=== PATIENT | male | born 1995 | race African-American/Black ===

== ENCOUNTER 2019-05-23 18:40 | Emergency (ER) | payer OTHER ==
[~2019-05-23] VITALS: Ht 190.5 cm; Wt 83.0 kg
[2019-05-23] MEDS ORDERED: IBUPROFEN 600MG TABLET PO ONE (19:15)
[2019-05-24] MEDS ORDERED: HYDROCODONE/ACETAMINOPHEN 5/325MG TABLET PO NR
[2019-05-24 00:15] VITALS: BP 124/68
== END 2019-05-24 00:45 | disposition home or self-care (01) ==
LOC: ER 18:40
DX: J02.8 Acute pharyngitis due to other specified organisms (principal); Z87.442 Personal history of urinary calculi
CPT/HCPCS: 87070; 87430; 99283

== ENCOUNTER 2019-10-05 22:49 | Emergency (ER) | payer MEDICAID, OTHER ==
[~2019-10-05] VITALS: Ht 198.1 cm; Wt 87.0 kg
[2019-10-05 23:15] VITALS: BP 129/74
[2019-10-05 23:49] LABS: CLARITY URINE TURBID (CLEAR); COLOR URINE YELLOW (YELLOW); KETONES URINE NEGATIVE (NEGATIVE); LEUKOCYTE ESTERASE URINE 2+ (NEGATIVE); NITRITE URINE NEGATIVE (NEGATIVE); OCCULT BLOOD URINE 1+ (NEGATIVE); PH URINE 5.5 (4.5-8.0); PROTEIN URINE 1+ (NEGATIVE); UROBILINOGEN URINE 0.2 E.U./dL (0.2-1.0)
[2019-10-06] MEDS: CEFTRIAXONE SODIUM 500 MG/VIAL IM SCH (00:45)
[2019-10-06] MEDS: AZITHROMYCIN 500 MG TABLET PO SCH (00:45)
[2019-10-06] MEDS: LIDOCAINE HCL 1% 20ML VIAL (Pyxis) INJ INFIL SCH (00:45)
== END 2019-10-06 01:17 | disposition home or self-care (01) ==
LOC: ER 22:49
DX: N34.2 Other urethritis (principal); R31.9 Hematuria, unspecified; R30.0 Dysuria; I10 Essential (primary) hypertension
CPT/HCPCS: 81003; 87086; 96372; 99283; J0696; J3490; Z7610

== ENCOUNTER 2019-11-25 13:05 | Emergency (ER) | payer MEDICAID ==
[~2019-11-25] VITALS: Ht 182.9 cm; Wt 87.0 kg
[2019-11-25 14:06] VITALS: BP 133/88
== END 2019-11-25 14:12 | disposition home or self-care (01) ==
LOC: ER 13:05
DX: I10 Essential (primary) hypertension (principal); Z98.890 Other specified postprocedural states; Z13.9 Encounter for screening, unspecified
CPT/HCPCS: 99281

== ENCOUNTER 2020-02-03 09:57 | Emergency (ER) | payer OTHER, MEDICAID ==
[~2020-02-03] VITALS: Ht 185.4 cm; Wt 82.0 kg
[2020-02-03] MEDS ORDERED: ONDANSETRON HCL 4MG/2ML INJ IV STA (10:12)
[2020-02-03] MEDS ORDERED: MORPHINE SULFATE 4 MG/ML CPJ (NOT FOR IM USE) IV STA (10:12)
[2020-02-03] MEDS ORDERED: SODIUM CHLORIDE 0.9% 1,000 ML IV ONE (10:12)
[2020-02-03] MEDS ORDERED: FAMOTIDINE 20MG/2ML VIAL IV STA (10:12)
[2020-02-03 10:59] LABS: BASOPHILS % 0.2 % (0.0-2.0); EOSINOPHILS % 0.3 % (0.0-5.0); HEMOGLOBIN. 17.4 g/dL (14.0-18.0); LYMPHOCYTES % 12.9 % (20.0-50.0); MEAN CORPUSCULAR HEMOGLOBIN 28.3 pg (28.0-32.0); MEAN CORPUSCULAR VOLUME 81.1 fL (80.0-94.0); MEAN PLATELET VOLUME 7.2 fl (7.4-10.4); MONOCYTES % 8.5 % (2.0-8.0); NEUTROPHILS % 78.1 % (40.0-76.0); PLATELET 391 x1000/uL (130-400); RED BLOOD CELL COUNT 6.17 mill/uL (4.7-6.1); RED CELL DISTRIBUTION WIDTH 13.4 % (11.6-14.6)
[2020-02-03 11:02] LABS: CLARITY URINE CLEAR (CLEAR); COLOR URINE YELLOW (YELLOW); KETONES URINE TRACE (NEGATIVE); LEUKOCYTE ESTERASE URINE NEGATIVE (NEGATIVE); NITRITE URINE NEGATIVE (NEGATIVE); OCCULT BLOOD URINE NEGATIVE (NEGATIVE); PROTEIN URINE 1+ (NEGATIVE); SPECIFIC GRAVITY URINE 1.014 (1.005-1.030); UROBILINOGEN URINE 0.2 E.U./dL (0.2-1.0)
[2020-02-03 11:07] LABS: CHLORIDE 99 mEq/L (98-107)
[2020-02-03 11:12] LABS: ETHANOL BLOOD < 10 mg/dL
[2020-02-03 11:15] LABS: INR 1.1
[2020-02-03 11:21] LABS: *AMPHETAMINES SCREEN URINE NEGATIVE (NEGATIVE); *BARBITURATES SCREEN URINE NEGATIVE (NEGATIVE); *BENZODIAZEPINES SCREEN URINE NEGATIVE (NEGATIVE); *COCAINE SCREEN URINE NEGATIVE (NEGATIVE)
[2020-02-03 11:22] LABS: CANNABINOID URINE SCREEN NEGATIVE (NEGATIVE); METHADONE URINE SCREEN NEGATIVE (NEGATIVE); OPIATES URINE SCREEN NEGATIVE (NEGATIVE); PHENCYCLIDINE URINE SCREEN NEGATIVE (NEGATIVE)
[2020-02-03] MEDS ORDERED: IOHEXOL-300 100 ML BOTTLE ONE (13:23)
[2020-02-03 15:47] VITALS: BP 139/64
== END 2020-02-03 16:30 | disposition home or self-care (01) ==
LOC: ER 09:57
DX: R10.9 Unspecified abdominal pain (principal); R11.2 Nausea with vomiting, unspecified; R19.7 Diarrhea, unspecified; I10 Essential (primary) hypertension
CPT/HCPCS: 36415; 71045; 74177; 80053; 80305; 80320; 81003; 83690; 85025; 85610; 96361; 96374; 96375; 99285; J2270; J2405; J3490; J7030; Q9967; G0480

== ENCOUNTER 2020-09-23 02:58 | Emergency (ER) | payer MEDICAID, OTHER ==
[~2020-09-23] VITALS: Ht 198.1 cm; Wt 82.0 kg
[2020-09-23 03:02] VITALS: BP 132/70
== END 2020-09-23 04:02 | disposition home or self-care (01) ==
LOC: ER 02:58
DX: J32.9 Chronic sinusitis, unspecified (principal); I10 Essential (primary) hypertension; A64 Unspecified sexually transmitted disease
CPT/HCPCS: 99282

== ENCOUNTER 2020-10-05 17:00 | Emergency (ER) | payer MEDICAID ==
[~2020-10-05] VITALS: Ht 193 cm; Wt 91.0 kg
[2020-10-05 17:08] VITALS: BP 126/81
== END 2020-10-05 19:20 | disposition home or self-care (01) ==
LOC: ER 17:00
DX: R55 Syncope and collapse (principal); R73.9 Hyperglycemia, unspecified; I10 Essential (primary) hypertension
CPT/HCPCS: 93005; 99283

== ENCOUNTER 2020-12-20 15:06 | Emergency (ER) | payer MEDICAID ==
[~2020-12-20] VITALS: Ht 198.1 cm; Wt 81.0 kg
[2020-12-20] MEDS ORDERED: KETOROLAC 30MG/ML VIAL IM ONE (16:30)
[2020-12-20] MEDS ORDERED: ACETAMINOPHEN 325MG TABLET PO ONE (16:45)
[2020-12-20] MEDS ORDERED: IBUPROFEN 600MG TABLET PO ONE (16:45)
[2020-12-20 18:56] VITALS: BP 122/68
[2020-12-20] MEDS ORDERED: SULF1TAB48 MT (19:33)
== END 2020-12-20 20:11 | disposition home or self-care (01) ==
LOC: ER 15:06
DX: N49.2 Inflammatory disorders of scrotum (principal); I10 Essential (primary) hypertension
CPT/HCPCS: 76870; 93976; 99284; J1885

== ENCOUNTER 2021-02-16 10:29 | Emergency (ER) | payer MEDICAID ==
[~2021-02-16] VITALS: Ht 198.1 cm; Wt 90.0 kg
[~2021-02-16 10:29] MED LIST: SULF1TAB48 MT
[2021-02-16] MEDS ORDERED: ONDANSETRON HCL 4MG/2ML INJ IV STA (10:47)
[2021-02-16] MEDS ORDERED: MORPHINE SULFATE 4 MG/ML CPJ (NOT FOR IM USE) IV STA (10:47)
[2021-02-16] MEDS ORDERED: SODIUM CHLORIDE 0.9% 1,000 ML IV ONE (11:00)
[2021-02-16 11:27] LABS: BASOPHILS % 0.1 % (0.0-2.0); EOSINOPHILS % 0.2 % (0.0-5.0); HEMATOCRIT. 51.9 % (42.0-52.0); HEMOGLOBIN. 17.9 g/dL (14.0-18.0); LYMPHOCYTES % 9.6 % (20.0-50.0); MEAN CORPUSCULAR HEMOGLOBIN 28.2 pg (28.0-32.0); MEAN CORPUSCULAR VOLUME 81.6 fL (80.0-94.0); MEAN PLATELET VOLUME 7.5 fl (7.4-10.4); MONOCYTES % 5.7 % (2.0-8.0); NEUTROPHILS % 84.4 % (40.0-76.0); PLATELET 381 x1000/uL (130-400); RED BLOOD CELL COUNT 6.36 mill/uL (4.7-6.1); RED CELL DISTRIBUTION WIDTH 14.4 % (11.6-14.6)
[2021-02-16 11:34] LABS: CHLORIDE 98 mEq/L (98-107)
[2021-02-16] MEDS ORDERED: ONDANSETRON HCL 4MG/2ML INJ IV ONE (12:45)
[2021-02-16 13:43] VITALS: BP 131/80
[2021-02-16] MEDS ORDERED: ONDA4TAB5 MT (13:49)
== END 2021-02-16 14:00 | disposition home or self-care (01) ==
LOC: ER 11:02
DX: R11.10 Vomiting, unspecified (principal); I10 Essential (primary) hypertension
CPT/HCPCS: 36415; 80053; 83690; 85025; 96361; 96374; 96375; 96376; 99285; J2270; J2405; J7030

== ENCOUNTER 2022-12-19 18:51 | Emergency (ER) | payer MEDICAID ==
[~2022-12-19] VITALS: Ht 198.1 cm; Wt 87.0 kg
[~2022-12-19 18:51] MED LIST changes: +ONDA4TAB5 MT
[2022-12-19 19:03] VITALS: BP 123/82
[2022-12-20] MEDS ORDERED: DOXY100C5 MT (17:39)
[2022-12-20] MEDS ORDERED: ONDA4TAB50 MT (17:39)
== END 2022-12-19 20:00 | disposition left against medical advice (07) ==
LOC: ER 18:51
DX: Z53.21 Procedure and treatment not carried out due to patient leaving prior to being seen by health care provider (principal)
CPT/HCPCS: 99281

== ENCOUNTER 2022-12-20 12:47 | Emergency (ER) | payer MEDICAID ==
[~2022-12-20] VITALS: Ht 182.9 cm; Wt 87.0 kg
[2022-12-20 12:50] VITALS: BP 138/86
[2022-12-20] MEDS ORDERED: ONDANSETRON 4MG ODT PO STA (14:05)
[2022-12-20] MEDS ORDERED: KETOROLAC 60MG/2ML VIAL IM STA (14:05)
[2022-12-20] MEDS ORDERED: SODIUM CHLORIDE 0.9% 1,000 ML IV ONE (14:15)
[2022-12-20 15:55] LABS: BASOPHILS % 0.6 % (0.0-2.0); HEMATOCRIT. 53.2 % (42.0-52.0); HEMOGLOBIN. 18.3 g/dL (14.0-18.0); LYMPHOCYTES % 10.3 % (20.0-50.0); MEAN CORPUSCULAR HEMOGLOBIN 28.7 pg (28.0-32.0); MEAN CORPUSCULAR VOLUME 83.4 fL (80.0-94.0); MEAN PLATELET VOLUME 8.5 fl (7.4-10.4); MONOCYTES % 8.9 % (2.0-8.0); NEUTROPHILS % 80.2 % (40.0-76.0); PLATELET 173 x1000/uL (130-400); RED BLOOD CELL COUNT 6.38 mill/uL (4.7-6.1); RED CELL DISTRIBUTION WIDTH 13.7 % (11.6-14.6)
[2022-12-20 16:03] LABS: CHLORIDE 97 mEq/L (98-107)
[2022-12-20 16:22] LABS: CLARITY URINE CLOUDY (CLEAR); COLOR URINE DARK YELLOW (YELLOW); KETONES URINE TRACE (NEGATIVE); LEUKOCYTE ESTERASE URINE TRACE (NEGATIVE); NITRITE URINE NEGATIVE (NEGATIVE); OCCULT BLOOD URINE NEGATIVE (NEGATIVE); PH URINE 5.5 (4.5-8.0); PROTEIN URINE 4+ (NEGATIVE); SPECIFIC GRAVITY URINE 1.056 (1.005-1.030)
[2022-12-20] MEDS ORDERED: ONDA4TAB50 MT (17:39)
[2022-12-20] MEDS ORDERED: DOXY100C5 MT (17:39)
[2022-12-20] MEDS ORDERED: IOHEXOL-300 100 ML BOTTLE ONE (20:03)
== END 2022-12-20 18:33 | disposition home or self-care (01) ==
LOC: ER 12:47
DX: N39.0 Urinary tract infection, site not specified (principal); I10 Essential (primary) hypertension
CPT/HCPCS: 36415; 71045; 74177; 80053; 81003; 83690; 85025; 96360; 96372; 99285; J1885; J7030; Q0162; Q9967; Z7610

== ENCOUNTER 2023-06-02 11:01 | Emergency (ER) | payer MEDICAID ==
[~2023-06-02] VITALS: Ht 188 cm; Wt 97.0 kg
[~2023-06-02 11:01] MED LIST changes: +DOXY100C5 MT; +ONDA4TAB50 MT
[2023-06-02 11:14] VITALS: TEMP 99.5; O2SAT 100
[2023-06-02 12:00] VITALS: BP 127/75; PULSE 76; RESP 16
[2023-06-02] MEDS ORDERED: IBUPROFEN 600MG TABLET PO ONE (12:00)
[2023-06-02] MEDS ORDERED: CEFTRIAXONE SODIUM 500 MG/VIAL IM ONE (12:00)
[2023-06-02] MEDS ORDERED: CEFTRIAXONE SODIUM 500 MG/VIAL IM SCH (13:15)
[2023-06-02] MEDS ORDERED: DOXY100C5 MT (13:18)
[2023-06-02] MEDS ORDERED: IBUP-2029 MT (13:21)
== END 2023-06-02 13:40 | disposition home or self-care (01) ==
LOC: ER 11:46
DX: R07.0 Pain in throat (principal); R05.9 Cough, unspecified; I10 Essential (primary) hypertension
CPT/HCPCS: 99283; 87430; 87070; 87077; 87491; 96372; J0696

== ENCOUNTER 2023-06-18 21:03 | Emergency (ER) | payer MEDICAID ==
[~2023-06-18] VITALS: Ht 190.5 cm; Wt 84.0 kg
[~2023-06-18 21:03] MED LIST changes: +IBUP-2029 MT
[2023-06-18 21:12] VITALS: O2SAT 100
[2023-06-18] MEDS ORDERED: KETOROLAC 30MG/ML VIAL IM ONE (22:15)
[2023-06-18 22:18] VITALS: BP 139/85
[2023-06-18] MEDS ORDERED: PENI500T MT (22:57)
[2023-06-18 23:08] VITALS: PULSE 110; RESP 18; TEMP 98.9
== END 2023-06-18 23:09 | disposition home or self-care (01) ==
LOC: ER 21:03
DX: J02.0 Streptococcal pharyngitis (principal); Z79.899 Other long term (current) drug therapy
CPT/HCPCS: 87430; 87070; 99283; J1885; Z7610

== ENCOUNTER 2024-02-10 18:33 | Emergency (ER) | payer MEDICAID ==
[~2024-02-10] VITALS: Ht 182.9 cm; Wt 100.0 kg
[~2024-02-10 18:33] MED LIST changes: +PENI500T MT
[2024-02-10 18:35] VITALS: TEMP 98.6; O2SAT 98
[2024-02-10] MEDS ORDERED: KETOROLAC 15MG/ML VIAL IV ONE (20:00)
[2024-02-10] MEDS ORDERED: METOCLOPRAMIDE HCL 10MG/2ML VIAL IV ONE (20:00)
[2024-02-10] MEDS ORDERED: ACETAMINOPHEN 325MG TABLET PO ONE (20:00)
[2024-02-10] MEDS ORDERED: MAGNESIUM/ALUMINUM HYDROXIDE/SIMETHICONE 30ML UDC PO ONE (20:00)
[2024-02-10] MEDS ORDERED: FAMOTIDINE 20MG/2ML VIAL IV ONE (20:00)
[2024-02-10 21:00] VITALS: BP 132/76; PULSE 82; RESP 18
[2024-02-10 22:30] LABS: BASOPHILS % 0.5 % (0.0-2.0); HEMATOCRIT. 44.7 % (42.0-52.0); HEMOGLOBIN. 15.5 g/dL (14.0-18.0); LYMPHOCYTES % 7.8 % (20.0-50.0); MEAN CORPUSCULAR HGB CONC 34.6 g/dL (31.0-37.0); MEAN CORPUSCULAR VOLUME 83.8 fL (80.0-94.0); MEAN PLATELET VOLUME 8.1 fl (7.4-10.4); MONOCYTES % 2.5 % (2.0-8.0); NEUTROPHILS % 89.2 % (40.0-76.0); PLATELET 265 x1000/uL (130-400); RED BLOOD CELL COUNT 5.33 mill/uL (4.7-6.1); RED CELL DISTRIBUTION WIDTH 13.5 % (11.6-14.6); WHITE BLOOD COUNT 10.5 x1000/uL (4.5-11.0)
[2024-02-10 22:38] LABS: CHLORIDE 103 mEq/L (98-107); POTASSIUM 3.2 mEq/L (3.5-5.1); SODIUM 140 mEq/L (136-145)
[2024-02-10 22:39] LABS: CALCIUM 9.3 mg/dL (8.7-10.4); CARBON DIOXIDE 27 mEq/L (21-32)
[2024-02-10 22:44] LABS: CREATININE 0.9 mg/dL (0.6-1.3); GLUCOSE 107 mg/dL (70-105); UREA NITROGEN BLOOD 12 mg/dL (9-23)
[2024-02-10 22:46] LABS: ALANINE AMINOTRANSFERASE 20 IU/L (10-49); ALBUMIN 4.8 g/dL (3.2-4.8); ASPARTATE AMINOTRANSFERASE 21 IU/L (<34); BILIRUBIN TOTAL 0.5 mg/dL (0.1-1.0); PROTEIN TOTAL 8.3 g/dL (6.0-8.3)
[2024-02-11] MEDS: FAMOTIDINE 20MG/2ML VIAL IV NR (00:32)
[2024-02-11] MEDS: KETOROLAC 15MG/ML VIAL IV NR (00:32)
[2024-02-11] MEDS: METOCLOPRAMIDE HCL 10MG/2ML VIAL IV NR (00:33)
[2024-02-11] MEDS: MAGNESIUM/ALUMINUM HYDROXIDE/SIMETHICONE 30ML UDC PO NR (00:33)
[2024-02-11] MEDS: ACETAMINOPHEN 325MG TABLET PO NR (00:33)
[2024-02-11] MEDS: HALOPERIDOL LACTATE 5MG/ML VIAL IM ONE (01:27)
== END 2024-02-11 02:25 | disposition left against medical advice (07) ==
LOC: ER 18:33
DX: R11.2 Nausea with vomiting, unspecified (principal); R10.13 Epigastric pain
CPT/HCPCS: 99284; 80053; 83690; 85025; 36415; 96374; 96375; 96372; J3490; J1630; J1885; J2765

== ENCOUNTER 2025-01-20 19:23 | Emergency (ER) | payer MEDICAID ==
[~2025-01-20] VITALS: Ht 198.1 cm; Wt 84.0 kg
[2025-01-20 19:32] VITALS: O2SAT 96
[2025-01-20 19:43] VITALS: O2SAT 98
[2025-01-20 20:41] LABS: CHLORIDE 99 mEq/L (98-107); POTASSIUM 3.6 mEq/L (3.5-5.1); SODIUM 136 mEq/L (136-145)
[2025-01-20 20:42] LABS: CALCIUM 10.3 mg/dL (8.7-10.4); CARBON DIOXIDE 25 mEq/L (21-32)
[2025-01-20 20:43] LABS: BASOPHILS % 0.3 % (0.0-2.0); DIFFERENTIAL COMMENT 0; HEMATOCRIT. 38.2 % (42.0-52.0); HEMOGLOBIN. 12.3 g/dL (14.0-18.0); LYMPHOCYTES % 16.6 % (20.0-50.0); MEAN CORPUSCULAR HEMOGLOBIN 23.7 pg (28.0-32.0); MEAN CORPUSCULAR HGB CONC 32.1 g/dL (31.0-37.0); MEAN CORPUSCULAR VOLUME 73.7 fL (80.0-94.0); MONOCYTES % 9.6 % (2.0-8.0); NEUTROPHILS % 73.5 % (40.0-76.0); PLATELET 396 x1000/uL (130-400); RED BLOOD CELL COUNT 5.18 mill/uL (4.7-6.1); RED CELL DISTRIBUTION WIDTH 14.5 % (11.6-14.6)
[2025-01-20 20:47] LABS: GLUCOSE 127 mg/dL (70-105); UREA NITROGEN BLOOD 19 mg/dL (9-23)
[2025-01-20 20:49] LABS: TROPONIN I HIGH SENSITIVITY < 4 ng/L (3.0-53)
[2025-01-20] MEDS: ACETAMINOPHEN 325MG TABLET PO ONE (20:50)
[2025-01-20] MEDS: ONDANSETRON 4MG ODT PO ONE (20:59)
[2025-01-20 21:18] VITALS: BP 111/78; PULSE 108; RESP 10; TEMP 37.2
[2025-01-20] MEDS ORDERED: CETI10CA2 MT (21:18)
[2025-01-20] MEDS ORDERED: AMOX1TAB16 MT (21:18)
== END 2025-01-20 22:12 | disposition home or self-care (01) ==
LOC: ER 19:23
DX: S06.0XAA Concussion with loss of consciousness status unknown, initial encounter (principal); J01.10 Acute frontal sinusitis, unspecified; Z98.890 Other specified postprocedural states; Z79.899 Other long term (current) drug therapy; W19.XXXA Unspecified fall, initial encounter; Y93.89 Activity, other specified; Y92.89 Other specified places as the place of occurrence of the external cause; Y99.8 Other external cause status
CPT/HCPCS: 99285; 70450; 71046; 80048; 85025; 84484; 36415; 93005; Q0162